=== PATIENT | female | born 1985 | race African-American/Black ===

== ENCOUNTER 2022-07-03 11:46 | Emergency (ER) | payer BC | END 2022-07-03 12:15 | disposition home or self-care (01) | LOC: NAV ERS 11:46 | DX: J11.1 Influenza due to unidentified influenza virus with other respiratory manifestations (principal); Z20.822 Contact with and (suspected) exposure to COVID-19 | CPT/HCPCS: 87804; 99283; U0003; U0005 ==

== ENCOUNTER 2024-05-06 10:04 | Emergency (ER) | payer BC ==
[2024-05-06 11:11] LABS: Bilirubin Negative (Negative); Blood, Urine Negative (Negative); Clarity Clear (Clear); Glucose, Urine (Dipstick) Negative (Negative); Ketone, Urine Negative (Negative); Leukocyte Small (Negative); Nitrite Negative (Negative); Protein, Urine (Dipstick) Trace mg/dL (Neg-Trace); pH, Urine 6.5 (5.0-9.0)
[2024-05-06 11:18] LABS: CAUTI Indications for Culture Dysuria,urgency,freq; RBC/HPF None Seen HPF (0-3); WBC/HPF 0-3 HPF (0-3)
[2024-05-06 11:19] LABS: Bacteria/HPF Rare-Few HPF (None Seen)
[2024-05-06 11:20] LABS: Pregnancy Test - Urine (BHCG) Negative (Negative); Pregu Control Background? CLEAR/WHITE (CLR/WHITE); Pregu Control Bar Appear? YES (CONTROL BAR); Urine Culture Reflex No No
[2024-05-06] MEDS ORDERED: Losartan 50 MG TAB ONE (11:36)
[2024-05-06 11:41] LABS: #Basophils 0.1 thou/uL (0.0-0.2); #Lymphocytes 2.8 thou/uL (1.20-3.40); #Monocytes 0.5 thou/uL (0.11-0.59); %Basophils 1.4 % (0.0-1.0); %Lymphocytes 29.3 % (21.0-51.0); %Monocytes 5.1 % (0.0-10.0); %Neutrophils 64.2 % (42.0-75.0); Hematocrit 24.5 % (36.0-47.0); Hemoglobin 6.7 g/dL (12.0-16.0); Mean Corpuscular HGB CONC 27.3 g/dL (32.0-36.0); Mean Corpuscular Hemoglobin 18.2 pg (27.0-31.0); Mean Corpuscular Volume 66.7 fl (78.0-98.0); Mean Platelet Volume 5.7 fL (7.4-10.4); Platelet Count 398 10x3/uL (130-400); RBC Distribution Width 21.6 % (11.5-14.5); Red Blood Cell (RBC) Count 3.67 mill/uL (4.20-5.40); White Blood Cell (WBC) Count 9.4 10x3/uL (4.8-10.8)
[2024-05-06 11:42] LABS: Anisocytosis SLIGHT = 6-15 cells (100X) (0-5/hpf); Hypochromia SLIGHT = 6-15 cells (100X) (0-5/hpf); Microcytosis SLIGHT = 6-15 cells (100X) (0-5/hpf); Platelet Adequacy Comment Appears Adequate; Target Cells SLIGHT = 2-5 cells (100X) (0-1/hpf)
[2024-05-06] MEDS ORDERED: Amlodipine 5 MG TAB ONE (14:16)
[2024-05-06 18:45] LABS: Ferritin Less than 2.00 ng/mL (10-291); Vitamin B12 190 pg/mL (211-911)
== END 2024-05-06 20:07 | disposition home or self-care (01) ==
LOC: NAV ERS 10:04
DX: D50.9 Iron deficiency anemia, unspecified (principal); I11.0 Hypertensive heart disease with heart failure; I50.9 Heart failure, unspecified
CPT/HCPCS: 36430; 81001; 81025; 82607; 82728; 86850; 86900; 86901; 99283; P9016